=== PATIENT | male | born 1950 | race Caucasian/White ===

== ENCOUNTER 2017-01-15 09:25 | Day surgery (SDC) | payer OTHER, MEDICARE ==
[~2017-01-15] VITALS: Ht 179.1 cm; Wt 84.8 kg
[~2017-01-15 09:25] MED LIST: ASPIR 8181 M1 PO; BENAZEPRIL HCL10 MG PO; COREG25 M1 PO; LANTUS 3 M100 UNITS1 SC; LASIX20 MG PO; LIPITOR20 MG PO; PEPCID20 MG PO
[2017-01-15 10:06] VITALS: BP 153/92
[2017-01-15 10:53] LABS: POINT-OF-CARE METER ID UU13113694
[2017-01-15 13:44] LABS: POINT-OF-CARE METER ID UU13113675
[2017-01-15 14:17] VITALS: BP 141/75
[2017-01-15 14:59] VITALS: BP 160/72
== END 2017-01-15 15:15 | disposition home or self-care (01) ==
LOC: SDC 09:25
PROVIDERS: Ophthalmology
DX: E11.3532 Type 2 diabetes mellitus with proliferative diabetic retinopathy with traction retinal detachment not involving the macula, left eye (principal); H43.12 Vitreous hemorrhage, left eye; I12.9 Hypertensive chronic kidney disease with stage 1 through stage 4 chronic kidney disease, or unspecified chronic kidney disease; E11.22 Type 2 diabetes mellitus with diabetic chronic kidney disease; Z79.82 Long term (current) use of aspirin; N18.2 Chronic kidney disease, stage 2 (mild); G51.0 Bell's palsy; K21.9 Gastro-esophageal reflux disease without esophagitis; Z87.891 Personal history of nicotine dependence; Z79.4 Long term (current) use of insulin
CPT/HCPCS: 82948; J0690; J0713; J2795; J3010; J3300